=== PATIENT | male | born 1985 | race Caucasian/White ===

== ENCOUNTER → 2017-02-22 | Outpatient (CLI) | payer OTHER ==
[~2017-02-22] MED LIST: IOHEXOL 180 MG/ML 10 ML VIAL. ONE; NAPR500T3 PO; methylPREDNISolone ACETATE 40 MG/ML VIAL. ONE; methylPREDNISolone ACETATE 80 MG/ML VIAL. ONE
--- NOTE | 2017-02-23 01:24 | PAIN ---
DATE OF SERVICE: 02/22/2017 INITIAL CONSULTATION FOR PAIN CLINIC DIAGNOSES: Lumbar radiculopathy, lumbar degenerative disk disease and lumbar herniated disk. HISTORY OF PRESENT ILLNESS: The patient is a 31-year-old male who presents with history of pain in low back and left lower extremity since 07/2015, suddenly occurred, but not a result of any specific injury or action that he is aware of. The patient reports since then the pain has been increasing, has been much worse over the past few months in the low back, left hip, left lower extremity, mostly in the posterolateral and anterior thigh on the left side, medial and anterior aspect of the lower leg and posterior lower leg as well on the lateral aspect. The patient reports no loss of motor function, no significant fatigability of the left lower extremity with walking, standing, change in positions, even sitting for more than about 30 minutes. The patient reports that the right leg has no significant pain, it has always been his left side with that difficulties. The patient did have MRI scan of the lumbar spine showing at L4-L5 focal left foraminal disk herniation with some [place] extruded disk material creating a mass effect on the left L4 nerve root along the superior aspect, also potentially creating some mass effect upon the L5 nerve root on its inferior aspect. The patient reports it awakens him from sleep very rarely, does not affect his bowel or bladder control, but does affect his ability to walk, ____ on his feet more than about 10-15 minutes. The patient has had physical therapy ended in December of this year, which was helpful, but did not decrease the pain significantly, but it did make him feel more mobile in the low back itself. The patient has been taking naproxen, which does not seem to help as well. No other medications. No other therapies or other modalities tried. He is still doing exercises daily that he was shown at physical therapy. The patient reports his disability rating is from 0-10, 10 being the worst, as a 9 with family and home responsibilities, recreation, social activity, occupation, sexual behavior, self care and life support activities. PAST MEDICAL HISTORY: Significant for no previous surgeries. The patient has been otherwise in very good health prior to the current situation without any significant past medical history. CURRENT MEDICATIONS: Include only [id number] naproxen. ALLERGIES: THE PATIENT IS ALLERGIC TO SULFA. SOCIAL HISTORY: The patient does not smoke, does not drink alcohol. 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 FAMILY HISTORY: Significant for type 2 diabetes in patient's father. REVIEW OF SYSTEMS: The patient's review of systems is positive for those items mentioned in history of present illness. All systems reviewed and otherwise negative. It is complete, full and well documented on the patient's chart. PHYSICAL EXAMINATION: VITAL SIGNS: The patient's blood pressure is 129/98, pulse 99, respirations 20, temperature is 98.3 degrees Fahrenheit, height is 6 feet, weight is 341 pounds. GENERAL: The patient is awake, alert, oriented, appropriate, very pleasant demeanor. HEENT: Head shows normocephalic, atraumatic. Extraocular movements are intact and symmetrical. Oral cavity shows mucous membranes moist and pink. Dentition is intact. NECK: Shows anterior throat supple without palpable lymphadenopathy noted. Swallow reflex is symmetrical. CHEST: Shows normal on inspection. Breath sounds are clear to auscultation bilaterally. HEART: Shows S1 and S2 clear. No murmurs auscultated. ABDOMEN: Obese, soft, nontender, nondistended. No palpable organomegaly is noted. No rebound or guarding. BACK: The patient's back shows spine grossly midline. Normal appearing thoracic kyphosis and lumbar lordotic curvature. No previous bruises, lesions, rashes or scars are noted. With inspection patient's lumbar paraspinous musculature shows symmetrical without evidence of atrophy, hypertrophy, no significant tenderness with palpation over the lumbar paraspinous musculature, very mildly in the inferior aspect only, no tenderness over the spinous processes. No tenderness over the sacrum or sacroiliac regions. The patient shows good rotation and motion of lumbar spine, both laterally greater than 10 degrees right and left, as well as extension greater than 10 degrees, forward flexion 45 degrees without significant pain reported. The patient shows lower extremities deep tendon reflexes at 2+ in the patellar, 1+ tendo-calcaneus tendons are equal. Motor exam is strong with dorsiflexion, extension, quadriceps and hamstring flexion rated at 5/5 and equal. Peripheral pulses are 1+ posterior tibial and dorsalis pedis pulses. No peripheral edema is noted. No clubbing, no cyanosis. Lower extremities are warm and dry to touch, equal in color and appearance. Straight leg raise noted to be slightly positive on the left at about 40-45 degrees, but is negative on the right. No pain with Gaenslen's or Miguelito's maneuvers bilaterally. The patient is able to stand, stand on his toes without difficulty or loss of balance, walks with a normal appearing gait, does not appear to favor the right or left lower extremity significantly with a short walk in the office today. IMPRESSION: 1. This is a 31-year-old male with approximate a [id number] history of low back and left lower extremity pain much worse over the past several months. 2. MRI scan of lumbar spine as noted. PLAN: Options were discussed with the patient including conservative medical management, physical therapy, continuation and interventional technique. He would like to pursue interventional techniques. We discussed a lumbar epidural steroid injection using description as well as anatomical models to describe the procedure. Risks were then discussed including, but not limited to bleeding, infection, possibility of epidural hematoma, subsequent neurologic compromise, dural punctures, headaches, spinal cord and/or nerve damage, side effects of steroid medication and poor results regarding pain control. The patient understands and wishes to proceed. The patient will return to the clinic in approximately 2 weeks for followup. He was counseled on return appointment, activity level and side effects to be aware of. DIAGNOSES: Lumbar radiculopathy, lumbar degenerative disk disease, lumbar herniated disk. PROCEDURE: Lumbar epidural steroid injection in translaminar approach at the L4-L5 level lesioning C-arm fluoroscopic guidance under sterile prep and drape using local anesthetic. MEDICATIONS INJECTED: Is 120 mg Depo-Medrol plus 10 mL of preservative-free normal saline and 2 mL Isovue for contrast. CONDITION AT DISCHARGE: Stable. The patient tolerated procedure well, had no complications. BETINA BERMAN MD DR: THEA/lea JOB#: [id number] / [id number]
== END | disposition home or self-care (01) ==
LOC: PNCL 13:11
PROVIDERS: ATTEND Neurological Surgery
DX: M51.16 Intervertebral disc disorders with radiculopathy, lumbar region (principal); Z83.3 Family history of diabetes mellitus; Z88.2 Allergy status to sulfonamides
CPT/HCPCS: 62323; J1030; J1040

== ENCOUNTER → 2017-03-08 | Outpatient (CLI) | payer OTHER ==
--- NOTE | 2017-03-09 03:55 | PAIN ---
DATE OF SERVICE: 03/08/2017 PROGRESS NOTE FOR PAIN CLINIC DIAGNOSES: Lumbar radiculopathy with lumbar degenerative disk disease and lumbar herniated disk. HISTORY OF PRESENT ILLNESS: The patient is a 31-year-old male who returns for followup status post lumbar epidural steroid injection x 1. The patient reports about a 90% improvement in most days, some days he is having some increased pain in the low back and lower extremities, in the left side primarily, but mostly doing quite well. The patient reports this pain as usually around a 2 on a scale of 10, can be as high as a 7 one time in the last week when he has increased his activity and doing chores at home and activity with taking care of his house. The patient reports otherwise doing quite better with the pain in the left leg as well as some low back, aching and dull, cramping and burning occasionally, but is on and off. Does not awaken him from sleep at night. He is sleeping well and reports he is otherwise doing well, increasing his activity gradually, still has some pain that is noticeable during the day, but much improved from what it was. The patient reports no new motor or sensory deficits, no new bowel or bladder incontinence or other complaints. PHYSICAL EXAMINATION: VITAL SIGNS: Today, the patient's blood pressure is 145/96, pulse 93, respirations are 20, temperature 97.9 degrees Fahrenheit, weight is 337 pounds. GENERAL: The patient is awake, alert, oriented, appropriate, very pleasant demeanor. HEENT: Head shows normocephalic, atraumatic. Extraocular movements are intact and symmetrical. Oral cavity shows mucous membranes moist and pink. Dentition is intact. NECK: Shows anterior throat supple without palpable lymphadenopathy noted. Swallow reflex is symmetrical. CHEST: Shows normal on inspection. Breath sounds are clear to auscultation bilaterally. HEART: Shows S1 and S2 clear. No murmurs auscultated. ABDOMEN: Obese, soft, nontender, nondistended. No palpable organomegaly is noted. No rebound or guarding demonstrated. BACK: Shows spine grossly in the midline. Normal-appearing thoracic kyphosis and lumbar lordotic curvature. Lumbar paraspinous muscle shows only some very mild diffuse tenderness in the low lumbar distribution bilaterally in the paraspinous regions, but without radiation. The patient has good rotational motion both laterally as well as extension and flexion without difficulty of the lumbar spine without pain reported. EXTREMITIES: Lower extremities show deep tendon reflexes at 2+ in the patellar, 1+ tendo-calcaneus tendons are equal. Motor exam is strong with 5/5 dorsiflexion, extension, quadriceps and hamstring flexion. Options were discussed with the patient. The patient's old chart was reviewed as his current medication regimen updated. Current review of systems updated today as well. We will proceed with a second lumbar epidural steroid injection today with fluoroscopic guidance. Risks were again discussed including, but not limited to bleeding, infection, possibility of epidural hematoma, subsequent neurologic compromise, dural puncture, headaches, spinal cord and/or nerve damage, side effects of steroid medication and poor results regarding pain control. The patient understands and wishes to proceed. The patient will return to the clinic in approximately 2 weeks for followup. He was counseled on return appointment, activity level and side effects to be aware of. DIAGNOSES: Lumbar radiculopathy with lumbar degenerative disk disease and lumbar herniated disk. PROCEDURE: Lumbar epidural steroid injection in translaminar approach at the L4-L5 level using C-arm fluoroscopic guidance under sterile prep and drape using local anesthetic. MEDICATIONS INJECTED: 120 mg of Depo-Medrol plus 10 mL of preservative-free normal saline and 2 mL of Isovue for contrast. CONDITION AT DISCHARGE: Stable. The patient tolerated procedure well, had no complications. BETINA BERMAN MD DR: THEA/lea JOB#: [id number] / [id number]
== END | disposition home or self-care (01) ==
LOC: PNCL 13:04
PROVIDERS: ATTEND Anesthesiology
DX: M51.16 Intervertebral disc disorders with radiculopathy, lumbar region (principal)
CPT/HCPCS: 62323; J1030; J1040